=== PATIENT | male | born 1965 | race Caucasian/White ===

== ENCOUNTER → 2019-03-29 | Outpatient (CLI) | payer OTHER ==
[~2019-03-29] MED LIST: METHOTREXATE PO; NATURE'S BLEND F1 MG PO; OXYCODONE HCL10 M1 PO
== END | disposition home or self-care (01) ==
LOC: RAD 13:44
DX: J18.9 Pneumonia, unspecified organism (principal); R06.02 Shortness of breath

== ENCOUNTER 2021-10-09 14:09 | Inpatient (IN) | payer OTHER, MEDICARE ==
[~2021-10-09] VITALS: Ht 170.1 cm; Wt 75.8 kg
[2021-10-09 14:39] VITALS: BP 116/74
[2021-10-09 14:44] LABS: BASO # 0.1 10*3/uL (0.0-0.1); EOS # 0.7 10*3/uL (0.0-0.4); EOS % 12.2 % (1.0-4.0); HEMATOCRIT 44.4 % (42.0-52.0); LYMPH # 0.7 10*3/uL (1.3-4.4); LYMPH % 11.9 % (27.0-41.0); MEAN CELL VOLUME 102.8 fl (80.0-94.0); MEAN CORPUSCULAR HGB 32.2 pg (27.0-31.0); MEAN CORPUSCULAR HGB CONC 31.3 g/dl (33.0-37.0); MEAN PLATELET VOLUME 9.6 fl (9.6-12.3); MONO # 0.5 10*3/uL (0.1-1.0); MONO % 8.9 % (3.0-9.0); NEUT # 3.9 10*3/uL (2.3-7.9); NEUT % 65.8 % (47.0-73.0); PLATELET COUNT AUTOMATED 277 10*3/uL (130-400); RED BLOOD COUNT 4.32 10*6/uL (4.50-5.90); RED CELL DISTRI WIDTH 15.5 % (0-14.5)
[2021-10-09 14:59] LABS: ACT PARTIAL THROMBO TIME 27.9 SECONDS (20.0-32.1); INTERNATIONAL NORM RATIO 1.3 (2.0-3.5)
[2021-10-09 15:53] LABS: ALKALINE PHOSPHATASE 248 U/L (45-117); BUN 12 mg/dl (7-24); CHLORIDE 97 mmol/L (98-107); CREATININE 1.05 mg/dL (0.70-1.30); POTASSIUM 3.9 mmol/L (3.5-5.1); SGOT/AST 37 IU/L (3-35); SGPT/ALT 32 U/L (12-78); SODIUM 138 mmol/L (136-145); TOTAL PROTEIN 7.2 gm/dL (6.4-8.2)
[2021-10-09 18:22] VITALS: BP 135/84
[2021-10-09 19:17] VITALS: BP 116/87
[2021-10-09 20:14] VITALS: BP 113/79
[2021-10-09] MEDS ORDERED: LOPRESSOR50 M1 PO (20:39)
[2021-10-09] MEDS ORDERED: METOPROLOL TART75 MG PO (20:40)
[2021-10-09] MEDS ORDERED: BUMETANIDE1 MG PO (20:41)
[2021-10-09] MEDS ORDERED: TOPROL XL25 MG PO (21:07)
[2021-10-09] MEDS ORDERED: ELIQUIS5 M1 PO (21:08)
[2021-10-09] MEDS ORDERED: ALENDRONATE SOD70 M1 PO (21:09)
[2021-10-09] MEDS ORDERED: ARAVA10 M1 PO (21:10)
[2021-10-09] MEDS ORDERED: LIPITOR40 MG PO (21:20)
[2021-10-09] MEDS ORDERED: PROTONIX TR40 M1 PO (21:21)
[2021-10-09] MEDS ORDERED: ASPIRIN ADULT L81 M2 PO (21:23)
[2021-10-09] MEDS ORDERED: PROVENTIL HFA6.7 GM INH (21:25)
[2021-10-09] MEDS ORDERED: SPIRIVA RESPIMAT4 GM INH (21:27)
[2021-10-10] VITALS: BP 114/74
[2021-10-10 04:00] VITALS: BP 108/44
[2021-10-10 05:48] LABS: ALKALINE PHOSPHATASE 213 U/L (45-117); BUN 11 mg/dl (7-24); CHLORIDE 98 mmol/L (98-107); CHOLESTEROL 113 mg/dL (<200); CREATININE 0.91 mg/dL (0.70-1.30); LDL CHOLESTEROL 56 mg/dL (9-159); POTASSIUM 3.4 mmol/L (3.5-5.1); SGOT/AST 34 IU/L (3-35); SGPT/ALT 24 U/L (12-78); SODIUM 140 mmol/L (136-145); TOTAL PROTEIN 6.5 gm/dL (6.4-8.2); TRIGLYCERIDES 77 mg/dl (<150)
[2021-10-10 05:55] LABS: BASO # 0.1 10*3/uL (0.0-0.1); BASO % 0.8 % (0.0-1.0); EOS # 0.6 10*3/uL (0.0-0.4); EOS % 8.7 % (1.0-4.0); HEMATOCRIT 41.1 % (42.0-52.0); LYMPH # 0.7 10*3/uL (1.3-4.4); LYMPH % 10.1 % (27.0-41.0); MEAN CELL VOLUME 102.5 fl (80.0-94.0); MEAN CORPUSCULAR HGB 32.9 pg (27.0-31.0); MEAN CORPUSCULAR HGB CONC 32.1 g/dl (33.0-37.0); MONO # 0.7 10*3/uL (0.1-1.0); MONO % 10.1 % (3.0-9.0); NEUT # 4.6 10*3/uL (2.3-7.9); PLATELET COUNT AUTOMATED 282 10*3/uL (130-400); RED BLOOD COUNT 4.01 10*6/uL (4.50-5.90); RED CELL DISTRI WIDTH 15.4 % (0-14.5); WHITE BLOOD COUNT 6.6 10*3/uL (4.8-10.8)
[2021-10-10 07:19] LABS: FREE T4 1.17 ng/dl (0.76-1.46)
[2021-10-10 08:00] VITALS: BP 83/42
[2021-10-10 12:00] VITALS: BP 103/71
[2021-10-10 16:00] VITALS: BP 108/69
[2021-10-10 20:00] VITALS: BP 104/69
[2021-10-11] VITALS: BP 100/74
[2021-10-11 06:08] LABS: BILIRUBIN Negative (Negative); BLOOD Negative (Negative); CLARITY Clear (Clear); COLOR Yellow (Yellow); GLUCOSE Negative (Negative); KETONE Negative (Negative); LEUKO ESTERASE Negative (Negative); NITRITE Negative (Negative); SPECIFIC GRAVITY 1.015 (1.001-1.030); UROBILINOGEN 0.2 E.U./dl (0.0-1.0)
[2021-10-11 06:10] LABS: PH 8.5 (4.5-8.0)
[2021-10-11 06:32] LABS: BASO # 0.1 10*3/uL (0.0-0.1); BASO % 0.8 % (0.0-1.0); EOS # 0.6 10*3/uL (0.0-0.4); HEMATOCRIT 42.5 % (42.0-52.0); LYMPH # 0.8 10*3/uL (1.3-4.4); LYMPH % 9.7 % (27.0-41.0); MEAN CORPUSCULAR HGB 32.3 pg (27.0-31.0); MEAN PLATELET VOLUME 9.5 fl (9.6-12.3); MONO # 0.8 10*3/uL (0.1-1.0); MONO % 9.7 % (3.0-9.0); NEUT # 5.6 10*3/uL (2.3-7.9); NEUT % 71.7 % (47.0-73.0); PLATELET COUNT AUTOMATED 298 10*3/uL (130-400); RED BLOOD COUNT 4.21 10*6/uL (4.50-5.90); RED CELL DISTRI WIDTH 15.8 % (0-14.5); WHITE BLOOD COUNT 7.8 10*3/uL (4.8-10.8)
[2021-10-11 06:42] LABS: BACTERIA TRACE; EPITHELIAL CELLS 0-2; MUCOUS TRACE; RBC 0-2 rbc/hpf (0-2); WBC 0-2 wbc/hpf (0-5)
[2021-10-11 06:43] LABS: BUN 10 mg/dl (7-24); CHLORIDE 100 mmol/L (98-107); POTASSIUM 3.2 mmol/L (3.5-5.1); SODIUM 140 mmol/L (136-145)
[2021-10-11 08:00] VITALS: BP 100/73
[2021-10-11 12:00] VITALS: BP 105/74
[2021-10-11 16:00] VITALS: BP 101/76
[2021-10-11 20:00] VITALS: BP 100/78
[2021-10-12] VITALS: BP 110/80
[2021-10-12 04:00] VITALS: BP 101/64
[2021-10-12 06:42] LABS: BUN 13 mg/dl (7-24); CHLORIDE 103 mmol/L (98-107); CREATININE 0.91 mg/dL (0.70-1.30); POTASSIUM 4.1 mmol/L (3.5-5.1); SODIUM 141 mmol/L (136-145)
[2021-10-12 08:00] VITALS: BP 99/69
[2021-10-12 12:00] VITALS: BP 98/62
[2021-10-12 16:00] VITALS: BP 98/73
[2021-10-12 20:00] VITALS: BP 110/66
[2021-10-13] VITALS: BP 160/69
[2021-10-13 06:22] LABS: HEMATOCRIT 45.7 % (42.0-52.0); MEAN CELL VOLUME 101.3 fl (80.0-94.0); MEAN CORPUSCULAR HGB 32.6 pg (27.0-31.0); MEAN CORPUSCULAR HGB CONC 32.2 g/dl (33.0-37.0); MEAN PLATELET VOLUME 9.6 fl (9.6-12.3); PLATELET COUNT AUTOMATED 314 10*3/uL (130-400); RED BLOOD COUNT 4.51 10*6/uL (4.50-5.90); RED CELL DISTRI WIDTH 15.1 % (0-14.5); WHITE BLOOD COUNT 6.7 10*3/uL (4.8-10.8)
[2021-10-13 06:33] LABS: BUN 19 mg/dl (7-24); CHLORIDE 99 mmol/L (98-107); CREATININE 0.96 mg/dL (0.70-1.30); MANUAL DIFF REFLEX YES; POTASSIUM 3.8 mmol/L (3.5-5.1); SODIUM 138 mmol/L (136-145)
[2021-10-13 07:23] LABS: BASOPHILS 1 % (0-1); PLATELET SUFFICIENCY NORMAL (NORMAL); POLYCHROMASIA SLIGHT; TOTAL CELLS COUNTED 100 #CELLS
[2021-10-13 08:00] VITALS: BP 102/66
[2021-10-13 12:00] VITALS: BP 106/69
[2021-10-13 15:59] VITALS: BP 105/67
[2021-10-13 20:00] VITALS: BP 105/63
[2021-10-14] VITALS (7 sets, daily range): BP systolic 99–118; BP diastolic 68–82
[2021-10-14 06:38] LABS: BUN 18 mg/dl (7-24); CHLORIDE 100 mmol/L (98-107); CREATININE 0.92 mg/dL (0.70-1.30); POTASSIUM 3.7 mmol/L (3.5-5.1); SODIUM 138 mmol/L (136-145)
[2021-10-14] MEDS ORDERED: ELIQUIS5 M1 PO (12:30)
[2021-10-14] MEDS ORDERED: BUMETANIDE1 MG PO (12:31)
[2021-10-14] MEDS ORDERED: METOPROLOL SUCC25 M2 PO (12:31)
[2021-10-14] MEDS ORDERED: KLOR-CON 1010 ME1 PO (12:32)
== END 2021-10-14 14:26 | disposition home or self-care (01) | DRG 193 ==
LOC: ED 14:09 → EDHOLD 17:16 → 5E 17:16
PROVIDERS: Emergency Medicine; Internal Medicine; Physical Therapist; Student in an Organized Health Care Education/Training Program; ADMIT Internal Medicine; ATTEND Internal Medicine
PROC: 5A2204Z Restoration of Cardiac Rhythm, Single (ICD-10-PCS; principal; 2021-10-14)
DX: J18.9 Pneumonia, unspecified organism (principal); I50.33 Acute on chronic diastolic (congestive) heart failure; J96.22 Acute and chronic respiratory failure with hypercapnia; J96.21 Acute and chronic respiratory failure with hypoxia; J98.11 Atelectasis; J44.0 Chronic obstructive pulmonary disease with (acute) lower respiratory infection; I43 Cardiomyopathy in diseases classified elsewhere; I48.0 Paroxysmal atrial fibrillation; Z66 Do not resuscitate; I49.5 Sick sinus syndrome; M06.9 Rheumatoid arthritis, unspecified; E87.8 Other disorders of electrolyte and fluid balance, not elsewhere classified; I11.0 Hypertensive heart disease with heart failure; M81.0 Age-related osteoporosis without current pathological fracture; M17.0 Bilateral primary osteoarthritis of knee; D53.9 Nutritional anemia, unspecified; Z51.5 Encounter for palliative care; Z79.82 Long term (current) use of aspirin; Z79.899 Other long term (current) drug therapy; Z79.51 Long term (current) use of inhaled steroids; Z88.8 Allergy status to other drugs, medicaments and biological substances

== ENCOUNTER 2024-11-06 11:58 | Inpatient (IN) | payer OTHER ==
[~2024-11-06] VITALS: Ht 170.1 cm; Wt 71.7 kg
[~2024-11-06 11:58] MED LIST changes: +ALENDRONATE SOD70 M1 PO; +ARAVA20 MG PO; +ASPIRIN ADULT L81 M2 PO; +BUMETANIDE1 MG PO; +ELIQUIS5 M1 PO; +KLOR-CON 1010 ME1 PO; +LIPITOR40 MG PO; +LOPRESSOR50 M1 PO; +METOPROLOL SUCC25 M2 PO; +METOPROLOL TART75 MG PO; +PROTONIX TR40 M1 PO; +PROVENTIL HFA6.7 GM INH; +SPIRIVA RESPIMAT4 GM INH; +TOPROL XL25 MG PO
[2024-11-06 12:01] VITALS: BP 127/72
[2024-11-06] MEDS ORDERED: Albuterol Sulfate 2.5 MG/3 ML VIAL NEB ONE (12:05)
[2024-11-06] MEDS ORDERED: methylPREDNISolone sod succ 125 MG VIAL IV ONE (12:05)
[2024-11-06] MEDS ORDERED: MAGNESIUM SULFATE 50 ML IV ONE (12:05)
[2024-11-06] MEDS ORDERED: AZITHROMYCIN 250 MG TAB PO ONE (12:05)
[2024-11-06 12:44] LABS: BUN 13 mg/dl (9-23); CHLORIDE 101 mmol/L (98-107); POTASSIUM 4.1 mmol/L (3.4-5.1)
[2024-11-06 12:56] LABS: BASO # 0.1 10*3/uL (0.0-0.1); BASO % 0.7 % (0.0-1.0); EOS # 0.1 10*3/uL (0.0-0.4); EOS % 1.4 % (1.0-4.0); HEMATOCRIT 46.6 % (42.0-52.0); MEAN CELL VOLUME 96.7 fl (80.0-94.0); MEAN CORPUSCULAR HGB 30.9 pg (27.0-31.0); MEAN PLATELET VOLUME 10.1 fl (9.6-12.3); MONO # 0.8 10*3/uL (0.1-1.0); MONO % 11.5 % (3.0-9.0); NEUT % 70.3 % (47.0-73.0); PLATELET COUNT AUTOMATED 175 10*3/uL (130-400); RED BLOOD COUNT 4.82 10*6/uL (4.50-5.90); RED CELL DISTRI WIDTH 15.1 % (0-14.5); WHITE BLOOD COUNT 7.1 10*3/uL (4.8-10.8)
[2024-11-06] MEDS ORDERED: FUROSEMIDE 40 MG/4 ML VIAL IV ONE (13:15)
[2024-11-06] MEDS ORDERED: JARDIANCE25 MG PO (13:22)
[2024-11-06] MEDS ORDERED: DIGOXIN125 MCG PO (13:22)
[2024-11-06] MEDS ORDERED: DOFETILIDE125 MCG PO (13:25)
[2024-11-06] MEDS ORDERED: ALDACTONE25 M1 PO (13:26)
[2024-11-06] MEDS ORDERED: ORENCIA CL125 MG/1 M SQ (13:27)
[2024-11-06] MEDS ORDERED: VALSARTAN80 MG PO (13:28)
[2024-11-06] MEDS ORDERED: IRON325 M1 PO (13:29)
[2024-11-06] MEDS ORDERED: Albuterol Sulf/Ipratropium 3 ML VIAL NEB PRN (14:10)
[2024-11-06] MEDS ORDERED: cefTRIAXone Sodium 1 GM in SYRINGE INFUSION 10 ML IV SCH (15:00)
[2024-11-06] MEDS ORDERED: Technetium Tc 99M Medronate 1 KIT KIT IV SCH (15:05)
[2024-11-06 17:00] VITALS: BP 109/59
[2024-11-06 17:26] VITALS: BP 109/59
[2024-11-06] MEDS ORDERED: PERCOCET 10-321 EACH PO (18:35)
[2024-11-06] MEDS ORDERED: Acetaminophen/Oxycodone 5 MG/325 MG TABLET PO PRN (18:40)
[2024-11-06] MEDS ORDERED: OXYCODONE HCL (IR) 5 MG TAB PO PRN (19:10)
[2024-11-06 20:00] VITALS: BP 101/63
[2024-11-06] MEDS ORDERED: APIXABAN 5 MG TAB PO SCH (22:00)
[2024-11-06] MEDS ORDERED: ATORVASTATIN CALCIUM 40 MG TABLET PO SCH (22:00)
[2024-11-06] MEDS ORDERED: GUAIFENESIN 600 MG TAB ER PO SCH (22:00)
[2024-11-07] VITALS: BP 147/56
[2024-11-07 06:46] LABS: BASO % 0.1 % (0.0-1.0); HEMATOCRIT 46.2 % (42.0-52.0); MEAN CELL VOLUME 95.1 fl (80.0-94.0); MEAN CORPUSCULAR HGB 30.9 pg (27.0-31.0); MEAN CORPUSCULAR HGB CONC 32.5 g/dl (33.0-37.0); MEAN PLATELET VOLUME 10.3 fl (9.6-12.3); MONO # 0.5 10*3/uL (0.1-1.0); MONO % 6.9 % (3.0-9.0); NEUT % 83.6 % (47.0-73.0); PLATELET COUNT AUTOMATED 188 10*3/uL (130-400); RED BLOOD COUNT 4.86 10*6/uL (4.50-5.90); RED CELL DISTRI WIDTH 14.7 % (0-14.5); WHITE BLOOD COUNT 7.1 10*3/uL (4.8-10.8)
[2024-11-07 06:57] LABS: ALKALINE PHOSPHATASE 143 U/L (46-116); BUN 18 mg/dl (9-23); CHLORIDE 98 mmol/L (98-107); CHOLESTEROL 119 mg/dL (<200); LDL CHOLESTEROL 64 mg/dL (9-159); POTASSIUM 3.9 mmol/L (3.4-5.1); SGPT/ALT 14 U/L (5-49); TOTAL PROTEIN 6.6 gm/dL (6.0-8.0); TRIGLYCERIDES 74 mg/dl (<150)
[2024-11-07 07:25] LABS: VITAMIN D, 25-HYDROXY 46.1 ng/mL (30-100)
[2024-11-07 08:00] VITALS: BP 108/63
[2024-11-07] MEDS ORDERED: Losartan Potassium 25 MG TAB PO SCH (10:00)
[2024-11-07] MEDS ORDERED: AZITHROMYCIN 250 ML IV SCH (10:00)
[2024-11-07] MEDS ORDERED: SPIRONOLACTONE 25 MG TAB PO SCH (10:00)
[2024-11-07] MEDS ORDERED: FERROUS SULFATE 325 MG TAB PO SCH (10:00)
[2024-11-07] MEDS ORDERED: FUROSEMIDE 40 MG/4 ML VIAL IV SCH (10:00)
[2024-11-07] MEDS ORDERED: methylPREDNISolone sod succ 40 MG VIAL IV SCH (10:00)
[2024-11-07] MEDS ORDERED: DIGOXIN 125 MCG TAB PO SCH (10:00)
[2024-11-07] MEDS ORDERED: EMPAGLIFLOZIN 25 MG TABLET PO SCH (10:00)
[2024-11-07 11:33] VITALS: BP 118/56
[2024-11-07 16:00] VITALS: BP 111/71
[2024-11-07] MEDS ORDERED: Nicotine 21 MG PATCH T SCH (16:05)
[2024-11-07 20:00] VITALS: BP 97/68
[2024-11-08] VITALS: BP 109/75
[2024-11-08 08:00] VITALS: BP 110/75
[2024-11-08] MEDS ORDERED: PREDNISONE10 MG PO (10:04)
[2024-11-08] MEDS ORDERED: LASIX20 MG PO (10:04)
[2024-11-08] MEDS ORDERED: K-TAB20 MEQ PO (10:04)
[2024-11-08] MEDS ORDERED: DOXYCYCLINE HY100 M3 PO (10:04)
[2024-11-08] MEDS ORDERED: OXYGEN NAS (10:38)
[2024-11-08 12:00] VITALS: BP 96/72
== END 2024-11-08 15:45 | disposition home or self-care (01) | DRG 177 ==
LOC: ED 11:58 → EDHOLD 14:02 → 4E 14:02
PROVIDERS: Emergency Medicine; Student in an Organized Health Care Education/Training Program; ADMIT Internal Medicine; ATTEND Internal Medicine
DX: J15.69 Pneumonia due to other Gram-negative bacteria (principal); I50.43 Acute on chronic combined systolic (congestive) and diastolic (congestive) heart failure; J96.01 Acute respiratory failure with hypoxia; J44.1 Chronic obstructive pulmonary disease with (acute) exacerbation; J44.0 Chronic obstructive pulmonary disease with (acute) lower respiratory infection; I48.21 Permanent atrial fibrillation; I11.0 Hypertensive heart disease with heart failure; S91.302A Unspecified open wound, left foot, initial encounter; D75.89 Other specified diseases of blood and blood-forming organs; M06.9 Rheumatoid arthritis, unspecified; Z71.6 Tobacco abuse counseling; F17.210 Nicotine dependence, cigarettes, uncomplicated; I49.5 Sick sinus syndrome; I48.0 Paroxysmal atrial fibrillation; G47.33 Obstructive sleep apnea (adult) (pediatric); Z20.822 Contact with and (suspected) exposure to COVID-19; M81.0 Age-related osteoporosis without current pathological fracture; Z95.0 Presence of cardiac pacemaker; Z82.49 Family history of ischemic heart disease and other diseases of the circulatory system; Z88.8 Allergy status to other drugs, medicaments and biological substances; X58.XXXA Exposure to other specified factors, initial encounter; Y93.89 Activity, other specified; Y92.89 Other specified places as the place of occurrence of the external cause; Y99.8 Other external cause status

== ENCOUNTER 2025-07-26 18:03 | Inpatient (IN) | payer OTHER ==
[~2025-07-26 18:03] MED LIST changes: +ALDACTONE25 M1 PO; +BREZTRI AEROS10.7 GM INH; +BUMETANIDE2 MG PO; +CLOPIDOGREL75 MG PO; +DIGOXIN125 MCG PO; +DOFETILIDE125 MCG PO; +DOXYCYCLINE HY100 M3 PO; +IRON325 M1 PO; +JARDIANCE25 MG PO; +K-TAB20 MEQ PO; +LASIX20 MG PO; +NATURE'S BLEND100 M2 PO; +ORENCIA CL125 MG/1 M SQ; +OXYGEN NAS; +PANTOPRAZOLE SO40 MG PO; +PERCOCET 10-321 EACH PO; +PREDNISONE10 MG PO; +VALSARTAN80 MG PO
[2025-07-26] MEDS ORDERED: LORazepam 2 MG/ML VIAL IV PRN (18:30)
[2025-07-26] MEDS ORDERED: SODIUM CHLORIDE 0.9% 500 ML IV ONE (19:55)
[2025-07-26 20:00] VITALS: BP 115/70
[2025-07-27] VITALS: BP 57/33
[2025-07-27 08:00] VITALS: BP 69/42
[2025-07-27] MEDS ORDERED: LORazepam 2 MG/ML VIAL IV SCH (09:55)
[2025-07-27] MEDS ORDERED: Water, Sterile 10 ML VIAL IV SCH (09:55)
[2025-07-27] MEDS ORDERED: Menthol/Zinc Oxide 4 GM THIN T PRN (10:05)
[2025-07-27] MEDS ORDERED: Menthol/Zinc Oxide 4 GM THIN T SCH (22:00)
== END 2025-07-27 10:54 | DRG 871 ==
LOC: 5E 18:03
PROVIDERS: ADMIT Internal Medicine; ATTEND Internal Medicine
DX: A41.9 Sepsis, unspecified organism (principal); E43 Unspecified severe protein-calorie malnutrition; I21.4 Non-ST elevation (NSTEMI) myocardial infarction; K72.00 Acute and subacute hepatic failure without coma; K76.7 Hepatorenal syndrome; R65.21 Severe sepsis with septic shock; J96.01 Acute respiratory failure with hypoxia; N17.0 Acute kidney failure with tubular necrosis; E87.1 Hypo-osmolality and hyponatremia; E87.20 Acidosis, unspecified; I50.22 Chronic systolic (congestive) heart failure; F17.210 Nicotine dependence, cigarettes, uncomplicated; I73.9 Peripheral vascular disease, unspecified; S91.302A Unspecified open wound, left foot, initial encounter; D53.9 Nutritional anemia, unspecified; E87.8 Other disorders of electrolyte and fluid balance, not elsewhere classified; R73.9 Hyperglycemia, unspecified; R74.01 Elevation of levels of liver transaminase levels; J44.9 Chronic obstructive pulmonary disease, unspecified; I11.0 Hypertensive heart disease with heart failure; G47.33 Obstructive sleep apnea (adult) (pediatric); I48.0 Paroxysmal atrial fibrillation; M06.9 Rheumatoid arthritis, unspecified; Z51.5 Encounter for palliative care; Z79.01 Long term (current) use of anticoagulants; Y93.89 Activity, other specified; Y92.89 Other specified places as the place of occurrence of the external cause; Y99.8 Other external cause status; Z95.0 Presence of cardiac pacemaker